=== PATIENT | male | born 1950 | race Caucasian/White ===

== ENCOUNTER 2024-10-12 16:22 | Emergency (ER) | payer MEDICARE ==
[2024-10-12] MEDS: Bacitracin Oint 1 GM U/D Packet TOP ONE (17:10)
== END 2024-10-12 17:15 | disposition home or self-care (01) ==
LOC: LB.ED 16:22
DX: S91.332A Puncture wound without foreign body, left foot, initial encounter (principal); E11.9 Type 2 diabetes mellitus without complications; I10 Essential (primary) hypertension; E78.00 Pure hypercholesterolemia, unspecified; Z88.0 Allergy status to penicillin; Z79.899 Other long term (current) drug therapy; Z79.82 Long term (current) use of aspirin; Z79.84 Long term (current) use of oral hypoglycemic drugs; W45.0XXA Nail entering through skin, initial encounter; Y93.01 Activity, walking, marching and hiking
CPT/HCPCS: 99282; 99283